=== PATIENT | female | born 1960 | race Caucasian/White ===

== ENCOUNTER 2024-10-09 13:03 | Outpatient (AMB) | payer OTHER, SELFPAY ==
--- OUTSIDE RECORDS SUMMARY | 2024-10-09 13:34 | XMS_ITS | Patient Health Record ---
Author Organization [facility] Address [address] [place] [address] Care Team Providers Care Health Support Specialist Name Role Phone DAVID COLON, VINAY PEPPER Primary Care Provider Neha vailable MARIA L GUIDRY Unavailable [phone] Allergies No Known Allergies Results Component Value Reference Range Notes [id number] IGP No Culture 30 Plus Reviewed date:07/04/2024 02:12:06 PM Interpretation: Performing Lab:[facility] [address], [address], [place], Phone - [phone], Director - [facility] Notes/Report: Clinical Information:vag/cerv robert [id number] No. of containers..01 ThinPrep Vial DIAGNOSIS: NEGATIVE FOR INTRAEPITHELIAL LESION OR MALIGNANCY. CELLULAR CHANGES ASSOCIATED WITH ATROPHY ARE PRESENT. Specimen adequacy: Satisfactory for evaluation. Endocervical component may not be distinguished in cases of atrophy. Clinician provided ICD10: Z0 1.419 Performed by: Elliott hidalgo, Crew Lead (ASCP) . . Note: The Pap smear is a screening test designed to aid in the detection of premalignant and malignant conditions of the uterine cervix. It is not a diagnostic procedure and should not be used as the sole means of detecting cervical cancer. Both false-positive and false-negative reports do occur. . Test Methodology: This liquid based ThinPrep(R) pap test was screened with the use of an image guided system. HPV Aptima Negative Negative This nucleic acid amplification test detects fourteen high-risk HPV types (16,18,31,33,35,39,45,51,52,56,58 ,59,66,68) without differentiation. HPV Genotype Reflex Criteria not met, HPV Genotype not performed. PDF Report Reviewed date:07/04/2024 02:16:17 PM Interpretation: Performing Lab:[facility] [place], [address], [address], [place], Phone - [phone], Director - [facility] Notes/Report: Clinical Information:vag/cerv robert [id number] No. of containers..01 ThinPrep Vial Reason For Referral No Information Medications Medication SIG (Take, Route, Frequency, Duration) Notes Start Date End Date Status Yuvafem 10 MCG 1 tablet Vaginal daily; Duration: 14 days This is the starting dose, to be followed by the twice weekly prescription as maintenance 07/01/2024 Active Yuvafem 10 MCG 1 tablet Vaginal Two times a Week; Duration: 84 days 07/01/2024 Active Social History Tobacco Use: Social History Observation Description Date Details (start date - stop date) Former Smoker NA - NA Sexual History Question Answer Notes Had sex in the past 12 months (vaginal, oral, or anal)? Yes with Men only Have you ever had a Sexually transmitted disease ? No AUDIT-C (Standard) Question Answer Notes Did you have a drink contain ing alcohol in the past year? Yes How often did you have a dri nk containing alcohol in the past year? 2 to 3 times a week (3 points) How many drinks did you have on a typical day when you were drinking in the past year? 3 or 4 drinks (1 point) How often did you have six o r more drinks on one occasion in the past year? Never (0 point) Points 4 Interpretation Positive Tobacco Control (Standard) Question Answer Notes Tobacco use: Former smoker How long has it been since y ou last smoked? Greater than 10 years Additional Findings: Tobacco non-user Ex -very heavy cigarette smoker (40+/day) Problems Problem Type SNOMED Code ICD Code Onset Dates Problem Status W/U Status Risk Notes Problem Postmenopausal atrophic vaginitis (54200089) Postmenopausal atrophic vaginitis (N95.2) Active confirmed Problem COVID-19 (U07.1) Active confirmed Vital Signs Temperature 98.2 degrees Fahrenheit 07/01/2024 Blood pressure diastolic 86 mm Hg 07/01/2024 Height 63 in 07/01/2024 Blood pressure systolic 148 mm Hg 07/01/2024 Weight 110 lbs 07/01/2024 BMI 19.48 kg/m2 07/01/2024 Encounters Encounter Location Date Provider Diagnosis Total [facility] [address] [place] [address] 07/01/2024 MARIA L GUIDRY Encounter for gynecological examination (general) (routine) without abnormal findings Z01.419 ; Encounter for screening mammogram for malignant neoplasm of breast Z12.31 and Postmenopausal atrophic vaginitis N95.2 Assessments Encounter Date Diagnosis (ICD Code) Assessment Notes Treatment Notes Treatment Clinical Notes Section Notes 07/01/2024 Encounter for gynecological examination (general) (routine) without abnormal findings (ICD-10 - Z01.419) During the visit, the following areas of concern were addressed: Discussed cervical cancer screening with either cytology alone every 3 years or high risk HPV co-testing every 5 years as per ASCCP guidelines. Advised continued annual pelvic exams. Patient encouraged to increase her level of exercise. SBE technique encouraged/taught . Patient reminded when annual mammogram is due. Patient encouraged to keep colon screening up to date.Discussed that hormones are not recommended to be used for thinning hair due to risks of breast cancer and cardiac events, and advised she discuss with a color receiver for meds that might help her with that. 07/01/2024 Encounter for screening mammogram for malignant neoplasm of breast (ICD-10 - Z12.31) Given dense breast assessment form 07/01/2024 Postmenopausal atrophic vaginitis (ICD-10 - N95.2) Plan Of Treatment Pending Test Test Name Order Date MM Digital Screening Mammogram 3D 2024 Next Appt Details Provider Name:MARIA L PANTOJA Dayan, 07/03/2025 10:30:00 AM, [address], [address], [place], [address], Insurance Providers Payer Name Payer Address Payer Phone Subscriber Number Group Number Insured Name Patient Relationship to Insured Coverage Start Date Coverage End Date [facility] [address] [place] [address] [id number] HANNA ENGLAND Self - patient is the insured Medical (General) History Medical History History ICD Code COVID-19 U07.1 Surgical History Surgery Date(Month/Year) Myomectomy, 2nd one was laparoscopic 199 08/2004 Hospitalization History Reason Date(Month/Year) myomectomy (first one) childbirth
--- OUTSIDE RECORDS SUMMARY | 2024-10-09 13:34 | XMS_ITS | Clinical Summary ---
Author Organization [facility] Address [address] [place] [address] Phone Care Team Providers Care Obstetrician And Gynaecologist Name Role Phone Angela Quin L SHEATHER Unavailable Pcp, Unknown Primary Care Provider Unavailabl e Medications ascorbic acid, vitamin C, 500 mg Cap Orally Active iodine, kelp, Tab 1 tab(s) p.o. 1/4 TAB DAILY PRN Active cholecalciferol , vitamin D3, 1,000 unit capsule Take 1 capsule by mouth daily. Active MILK THISTLE ORAL Orally Once daily Active multivitamin (MULTIVITAMIN) per tablet Orally Once daily Active Medication-Free Text Hormone Cream Base Cream, Sig: CS-E2 0.5/E3 2/P 150/TE 1.5 Active Family History Medical History Relation Comments Hypertension Maternal Grandfather 2 Diabetes mellitus Maternal Grandmother 2 Stroke Maternal Grandmother 2 Hypertension Mother 2 Relation Status Comments Maternal Grandfather 1 Maternal Grandfather 2 Maternal Grandmother 1 Maternal Grandmother 2 Mother 1 Mother 2 Social History Tobacco Use Types Packs/Day Years Used Date Smoking Tobacco: Never Assessed Education Answer Date Recorded Are you interested in more education? Not on leif e 06/10/2022 Are you concerned about learning? Not on file 06/10/2022 No 06/10/2022 No 06/10/2022 Digital Access Answer Date Recorded No 07/11/2022 No 07/11/2022 Reliable internet access at home? Not on file 07/11/2022 Device with a working camera? Not on file Comments Unknown Sex and Gender Information Value Date Recorded Sex Assigned at Not on file Legal Sex Female 9:46 PM EDT Gender Identity Not on file Sexual Orientation Not on file Last Filed Vital Signs Vital Sign Reading Time Taken Comments Blood Pressure 122/78 10/07/2015 11:42 AM EDT Pulse 70 10/07/2015 11:42 AM EDT Temperature 37.2 C (98.9 F) 10/07/2015 11:42 AM EDT Respiratory Rate - - Oxygen Saturation - - Inhaled Oxygen Concentration - - Weight 52.5 kg (115 lb 12.8 oz) 016 11:42 AM EDT Height 158.8 cm (5' 2.5 ) 10/07/2015 11 :42 AM EDT Body Mass Index 20.84 10/07/2015 11:42 AM EDT Plan of Treatment Health Maintenance Due Date Last Done Comments Adult Td,Tdap Booster 1961 DEPRESSION SCREENING 1973 SMOKING Hx and SMOKELESS TOBACCO SCREENING 1974 HEPATITIS C SCREENING 06/15/1979 HIV ONE-TIME SCREENING (18-65 YEARS) 06/15/1979 COLOGUARD 2006 COLONOSCOPY 2006 COLORECTAL CANCER SCREENING 2006 FIT TEST 2006 FOBT 2006 SIGMOIDOSCOPY 2006 VIRTUAL COLONOSCOPY 2006 PNEUMOCOCCAL VACCINES (50+ years) (1 of 1 - PCV) 06/15/2011 ZOSTER VACCINES (1 of 2) 06/15/2011 PAP SMEAR 12/10/2018 12/11/2015 LIPID PANEL 06/06/2019 06/05/2014 MAMMOGRAM 08/07/2023 08/06/2021, 03/16, 12/31/2018, Additional history exists COVID-19 VACCINE ( - 2023-25 season) 2023 RSV VACCINE (1 - 1-dose 75+ series) 2036 HEPATITIS A VACCINES Aged Out No long er eligible based on patient's age to complete this topic HIB VACCINES Aged Out No longer eligi ble based on patient's age to complete this topic MENINGOCOCCAL VACCINES (ACWY) Aged Out No longer eligible based on patient's age to complete this topic MENINGOCOCCAL VACCINES (B) Aged Out N o longer eligible based on patient's age to complete this topic Medical Devices Not on file Procedures Procedure Name Priority Date/Time Associated Diagnosis Comments HM MAMMOGRAPHY Routine 08/06/2021 OUTSIDE LDL Routine 06/05/2014 from Last 3 Months or Most Recently Relevant to Health Maintenance Results * MAMMOGRAPHY FOR RESULT ENTRY ONLY (08/06/2021) Quin Miller NP HEALTH MAINTENANCE Edited Resul t - Final * Outside LDL (06/05/2014) LDL - External 101 50 - 250 mg/ml Historical Provider LAB BLOOD ORDERABLES Serenity gallegos Result from Last 3 Months or Most Recently Relevant to Health Maintenance Care Teams Obstetrician And Gynaecologist Relationship Specialty Start Date End Date Pcp, Unknown PCP - General 09/08/21 Quin Miller, SHEATHER [email or web address] Historical LMR Provider 12/01/16 Additional Source Comments The information contained in this document represents components of the legal health record. It is not the complete legal health record.[facility]
== END 2024-10-09 13:05 | disposition home or self-care (01) ==
LOC: HO.HMGAL 13:03
PROVIDERS: Visit Provider Registered Nurse Emergency
DX: J30.89 Other allergic rhinitis (principal)
CPT/HCPCS: 95117; 95165

== ENCOUNTER 2024-10-23 15:17 | Outpatient (AMB) | payer OTHER, SELFPAY ==
--- OUTSIDE RECORDS SUMMARY | 2024-10-23 18:17 | XMS_ITS | Clinical Summary ---
Author Organization [facility] Address [address] [place] [address] Phone Care Team Providers Care Market Research Analyst Name Role Phone Angela Quin L QUARTER FOLDER Unavailable [phone] Pcp, Unknown Primary Care Provider Unavailabl e [...] 08/07/2023 08/06/2021, 03/16, 12/31/2018, Additional history exists INFLUENZA VACCINE (#1) 2024 COVID-19 VACCINE ( - 2023- season) 2024 RSV VACCINE (1 - 1-dose 75+ series) [...] Procedure Name Priority Date/Time Associated Diagnosis Comments MAMMOGRAPHY Routine 08/06/2021 OUTSIDE LDL Routine 06/05/2014 from Last 3 Months or Most Recently Relevant to Health Maintenance Results * MAMMOGRAPHY FOR RESULT ENTRY ONLY (08/06/2021) us Quin Miller NP HEALTH MAINTENANCE Edited Resul t - Final * Outside LDL (06/05/2014) LDL - External 101 50 - 250 mg/ml us Historical Provider LAB BLOOD ORDERABLES Serenity l Result from Last 3 Months or Most Recently Relevant to Health Maintenance Care Teams Market Research Analyst Relationship Specialty Start Date End Date Pcp, Unknown PCP - General 09/08/21 Quin Miller, QUARTER FOLDER [email or web address] Historical LMR Provider 12/01/16 Additional Source Comments The information contained in this document represents components of the legal health record. It is not the complete legal health record.[facility]
--- OUTSIDE RECORDS SUMMARY | 2024-10-23 18:17 | XMS_ITS | Patient Health Record ---
Author Organization [facility] Address [address] [place] [address] Care Team Providers Care Proof Sorter Name Role Phone DAVID COLON, VINAY PEPPER Primary Care Provider Neha vailable MARIA L GUIDRY Unavailable [phone] Allergies No Known Allergies Results Component Value Reference Range Notes [id number] IGP No Culture 30 Plus Reviewed date:07/04/2024 02:12:06 PM Interpretation: Performing Lab:[facility] [place], [address], [address], [place], Phone - [phone], Director - [facility] Notes/Report: Clinical Information:vag/cerv robert [id number] No. of containers..01 ThinPrep Vial DIAGNOSIS: NEGATIVE FOR INTRAEPITHELIAL LESION OR MALIGNANCY. CELLULAR CHANGES ASSOCIATED WITH ATROPHY ARE PRESENT. Specimen adequacy: Satisfactory for evaluation. Endocervical component may not be distinguished in cases of atrophy. Clinician provided ICD10: Z0 1.419 Performed by: Elliott hidalgo, Inside Trucker (ASCP) . . Note: The Pap smear [...] [address], [address], [place], Phone - [phone], Director - [facility] Notes/Report: Clinical Information:vag/cerv robert [id number] No. of containers..01 ThinPrep Vial Reason For [...] Status Risk Notes Problem Postmenopausal atrophic vaginitis (22725284) Postmenopausal atrophic vaginitis (N95.2) Active confirmed Problem COVID-19 (529222752) COVID-19 (U07.1) Active confirmed Vital Signs Temperature 98.2 degrees Fahrenheit 07/01/2024 Blood pressure diastolic 86 mm Hg 07/01/2024 Height 63 in 07/01/2024 Blood pressure systolic 148 mm Hg 07/01/2024 Weight 110 lbs 07/01/2024 BMI 19.48 kg/m2 07/01/2024 Encounters Encounter Location Date Provider Diagnosis Total [facility] [address] [place] [address] 07/01/2024 MARIA L GUIDRY Encounter for gynecological [...] events, and advised she discuss with a sock mender for meds that might help her with that. 07/01/2024 Encounter for screening mammogram for malignant neoplasm of breast (ICD-10 - Z12.31) Given dense breast assessment form 07/01/2024 Postmenopausal atrophic vaginitis (ICD-10 - N95.2) Plan Of Treatment Pending Test Test Name Order Date MM Digital Screening Mammogram 3D 2024 Next Appt Details Provider Name:MARIA L PANTOJA Dayan, 07/03/2025 10:30:00 AM, [address], [address], [place], [address], Insurance Providers Payer Name Payer Address Payer Phone Subscriber Number Group Number Insured Name Patient Relationship to Insured Coverage Start Date Coverage End Date [facility] [address] [place] [address] [id number] HANNA ENGLAND Self - patient is the insured Medical (General) History Medical History History ICD Code COVID-19 U07.1 Surgical History Surgery Date(Month/Year) Myomectomy, 2nd one was laparoscopic 199 08/2004 Hospitalization History Reason Date(Month/Year) myomectomy (first one) childbirth
== END 2024-10-23 15:19 | disposition home or self-care (01) ==
LOC: HO.HMGAL 15:17
PROVIDERS: Visit Provider Registered Nurse Emergency
DX: J30.89 Other allergic rhinitis (principal)
CPT/HCPCS: 95117; 95165

== ENCOUNTER 2024-11-06 13:14 | Outpatient (AMB) | payer OTHER, SELFPAY ==
--- OUTSIDE RECORDS SUMMARY | 2024-11-06 15:38 | XMS_ITS | Patient Health Record ---
Author Organization [facility] Address [address] [place] [address] Care Team Providers Care Sluice Tender Name Role Phone DAVID COLON, VINAY PEPPER Primary Care Provider Neha crystal MARIA L GUIDRY Unavailable [phone] Allergies No Known Allergies Results Component Value Reference Range Notes PDF Report Reviewed date:07/04/2024 02:16:17 PM Interpretation: Performing Lab:[facility] [place], [address], [address], [place], Phone - [phone], Director - [facility] Notes/Report: Clinical Information:vag/cerv robert [id number] No. of containers..01 ThinPrep Vial [id number] IGP No Culture 30 Plus Reviewed date:07/04/2024 02:12:06 PM Interpretation: Performing Lab:[facility] [place], [address], [address], [place], Phone - [phone], Director - [facility] Notes/Report: Clinical Information:vag/cerv robert [id number] No. of containers..01 ThinPrep Vial DIAGNOSIS: NEGATIVE FOR INTRAEPITHELIAL LESION OR MALIGNANCY. CELLULAR CHANGES ASSOCIATED WITH ATROPHY ARE PRESENT. Specimen adequacy: Satisfactory for evaluation. Endocervical component may not be distinguished in cases of atrophy. Clinician provided ICD10: Z0 1.419 Performed by: Elliott hidalgo, Recreation Technician (ASCP) . . Note: The Pap smear [...] Criteria not met, HPV Genotype not performed. Reason For Referral No Information Medications Medication [...] Status Risk Notes Problem Postmenopausal atrophic vaginitis (23339681) Postmenopausal atrophic vaginitis (N95.2) Active confirmed Problem COVID-19 (676835159) COVID-19 (U07.1) Active confirmed Vital Signs Temperature 98.2 degrees Fahrenheit 07/01/2024 Blood pressure diastolic 86 mm Hg 07/01/2024 Height 63 in 07/01/2024 Blood pressure systolic 148 mm Hg 07/01/2024 Weight 110 lbs 07/01/2024 BMI 19.48 kg/m2 07/01/2024 Encounters Encounter Location Date Provider Diagnosis Total [facility] [address] [place] [address] 07/01/2024 MARIA L GUIDRY Encounter for gynecological [...] events, and advised she discuss with a excavator backhoe operator for meds that might help her with that. 07/01/2024 Encounter for screening mammogram for malignant neoplasm of breast (ICD-10 - Z12.31) Given dense breast assessment form 07/01/2024 Postmenopausal atrophic vaginitis (ICD-10 - N95.2) Plan Of Treatment Pending Test Test Name Order Date MM Digital Screening Mammogram 3D 2024 Next Appt Details Provider Name:MARIA L PANTOJA Dayan, 07/03/2025 10:30:00 AM, [address], [address], [place], [address], Insurance Providers Payer Name Payer Address Payer Phone Subscriber Number Group Number Insured Name Patient Relationship to Insured Coverage Start Date Coverage End Date [facility] [address] [place] [address] [id number] HANNA ENGLAND Self - patient is the insured Medical (General) History Medical History History ICD Code COVID-19 U07.1 Surgical History Surgery Date(Month/Year) Myomectomy, 2nd one was laparoscopic 199 08/2004 Hospitalization History Reason Date(Month/Year) myomectomy (first one) childbirth
--- OUTSIDE RECORDS SUMMARY | 2024-11-06 15:38 | XMS_ITS | Clinical Summary ---
Author Organization [facility] Address [address] [place] [address] Phone Care Team Providers Care Emergency Response Officer Name Role Phone Angela Quin L HOME APPLIANCE INSTALLER Unavailable Pcp, Unknown Primary Care Provider Unavailabl [...] Recently Relevant to Health Maintenance Care Teams Emergency Response Officer Relationship Specialty Start Date End Date Pcp, Unknown PCP - General 09/08/21 Quin Miller, HOME APPLIANCE INSTALLER [email or web address] Historical LMR Provider 12/01/16 Additional Source Comments The information contained in this document represents components of the legal health record. It is not the complete legal health record.[facility]
== END 2024-11-06 13:17 | disposition home or self-care (01) ==
LOC: HO.HMGAL 13:14
PROVIDERS: PCP Nurse Practitioner Family; Visit Provider Registered Nurse Emergency
DX: J30.89 Other allergic rhinitis (principal)
CPT/HCPCS: 95117; 95165

== ENCOUNTER 2024-11-27 13:42 | Outpatient (AMB) | payer OTHER, SELFPAY ==
--- OUTSIDE RECORDS SUMMARY | 2024-11-27 17:25 | XMS_ITS | Patient Health Record ---
Author Organization [facility] Address [address] [place] [address] Care Team Providers Care Commercial Solar Sales Consultant Name Role Phone DAVID COLON, VINAY PEPPER Primary Care Provider Neha vailable MARIA L GUIDRY Unavailable [phone] Allergies No Known Allergies Results Component Value Reference Range Notes [id number] IGP No Culture 30 Plus Reviewed date:07/04/2024 02:12:06 PM Interpretation: Performing Lab:[facility] [address], [address], [place], Phone - [phone], Director - [facility] Notes/Report: Clinical Information:vag/cerv robert [id number] No. of containers..01 ThinPrep Vial DIAGNOSIS: NEGATIVE FOR INTRAEPITHELIAL LESION OR MALIGNANCY. CELLULAR CHANGES ASSOCIATED WITH ATROPHY ARE PRESENT. Specimen adequacy: Satisfactory for evaluation. Endocervical component may not be distinguished in cases of atrophy. Clinician provided ICD10: Z0 1.419 Performed by: Elliott hidalgo, Electronic Engineering Draftsperson (ASCP) . . Note: The Pap smear [...] [address], [address], [place], Phone - [phone], Director - [facility] Notes/Report: Clinical Information:vag/cerv robert [id number] No. of containers..01 ThinPrep Vial Reason For [...] Status Risk Notes Problem Postmenopausal atrophic vaginitis (99405861) Postmenopausal atrophic vaginitis (N95.2) Active confirmed Problem COVID-19 (138197783) COVID-19 (U07.1) Active confirmed Vital Signs Temperature 98.2 degrees Fahrenheit 07/01/2024 Blood pressure diastolic 86 mm Hg 07/01/2024 Height 63 in 07/01/2024 Blood pressure systolic 148 mm Hg 07/01/2024 Weight 110 lbs 07/01/2024 BMI 19.48 kg/m2 07/01/2024 Encounters Encounter Location Date Provider Diagnosis Total [facility] [address] [place] [address] 07/01/2024 MARIA L GUIDRY Encounter for gynecological [...] events, and advised she discuss with a graphics intern for meds that might help her with that. 07/01/2024 Encounter for screening mammogram for malignant neoplasm of breast (ICD-10 - Z12.31) Given dense breast assessment form 07/01/2024 Postmenopausal atrophic vaginitis (ICD-10 - N95.2) Plan Of Treatment Pending Test Test Name Order Date MM Digital Screening Mammogram 3D 2024 Next Appt Details Provider Name:MARIA L PANTOJA Dayan, 07/03/2025 10:30:00 AM, [address], [address], [place], [address], Insurance Providers Payer Name Payer Address Payer Phone Subscriber Number Group Number Insured Name Patient Relationship to Insured Coverage Start Date Coverage End Date [facility] [address] [place] [address] [id number] HANNA ENGLAND Self - patient is the insured Medical (General) History Medical History History ICD Code COVID-19 U07.1 Surgical History Surgery Date(Month/Year) Myomectomy, 2nd one was laparoscopic 199 08/2004 Hospitalization History Reason Date(Month/Year) myomectomy (first one) childbirth
--- OUTSIDE RECORDS SUMMARY | 2024-11-27 17:25 | XMS_ITS | Clinical Summary ---
Author Organization [facility] Address [address] [place] [address] Phone Care Team Providers Care Senior Bi Architect Name Role Phone Angela Quin L ASSISTANT TERMINAL MANAGER Unavailable [phone] Pcp, Unknown Primary Care Provider Unavailabl e [...] exists INFLUENZA VACCINE (#1) 2024 COVID-19 VACCINE (1 - 2024- season) 2024 RSV VACCINE (1 - 1-dose [...] Recently Relevant to Health Maintenance Care Teams Senior Bi Architect Relationship Specialty Start Date End Date Pcp, Unknown PCP - General 09/08/21 Quin Miller, ASSISTANT TERMINAL MANAGER [email or web address] Historical LMR Provider 12/01/16 Additional Source Comments The information contained in this document represents components of the legal health record. It is not the complete legal health record.[facility]
== END 2024-11-27 13:42 | disposition home or self-care (01) ==
LOC: HO.HMGAL 13:42
PROVIDERS: PCP Nurse Practitioner Family; Visit Provider Registered Nurse Emergency
DX: J30.89 Other allergic rhinitis (principal)
CPT/HCPCS: 95117; 95165

== ENCOUNTER 2024-12-04 16:12 | Outpatient (AMB) | payer OTHER, SELFPAY ==
--- OUTSIDE RECORDS SUMMARY | 2024-12-04 22:02 | XMS_ITS | Clinical Summary ---
Author Organization [facility] Address [address] [place] [address] Phone Care Team Providers Care It Lead Name Role Phone Anegla Quin L UPSETTING MACHINE OPERATOR Unavailable [phone] Pcp, Unknown Primary Care Provider Unavailabl e [...] Recently Relevant to Health Maintenance Care Teams It Lead Relationship Specialty Start Date End Date Pcp, Unknown PCP - General 09/08/21 Quin Miller, UPSETTING MACHINE OPERATOR [email or web address] Historical LMR Provider 12/01/16 Additional Source Comments The information contained in this document represents components of the legal health record. It is not the complete legal health record.[facility]
--- OUTSIDE RECORDS SUMMARY | 2024-12-04 22:03 | XMS_ITS | Patient Health Record ---
Author Organization [employer] [facility] Address [address] [place] [address] Care Team Providers Care Employee Communications Intern Name Role Phone DAVID COLON, VINAY PEPPER Primary Care Provider Neha vailable MARIA L GUIDRY Unavailable [phone] Allergies No Known Allergies Results Component Value Reference Range Notes [id number] IGP No Culture 30 Plus Reviewed date:07/04/2024 02:12:06 PM Interpretation: Performing Lab:[facility] [place], [address], [address], [place], Phone - [phone], Director - [facility] Notes/Report: Clinical Information:vag/cerv robert [id number] No. of containers..01 ThinPrep Vial DIAGNOSIS: NEGATIVE FOR INTRAEPITHELIAL LESION OR MALIGNANCY. CELLULAR CHANGES ASSOCIATED WITH ATROPHY ARE PRESENT. Specimen adequacy: Satisfactory for evaluation. Endocervical component may not be distinguished in cases of atrophy. Clinician provided ICD10: Z0 1.419 Performed by: Elliott hidalgo, Test Evaluator (ASCP) . . Note: The Pap smear [...] [address], [address], [place], Phone - [phone], Director - [facility] Notes/Report: Clinical Information:vag/cerv robert [id number] No. of containers..01 ThinPrep Vial Reason For [...] Status Risk Notes Problem Postmenopausal atrophic vaginitis (42007691) Postmenopausal atrophic vaginitis (N95.2) Active confirmed Problem COVID-19 (375162571) COVID-19 (U07.1) Active confirmed Vital Signs Temperature 98.2 degrees Fahrenheit 07/01/2024 Blood pressure diastolic 86 mm Hg 07/01/2024 Height 63 in 07/01/2024 Blood pressure systolic 148 mm Hg 07/01/2024 Weight 110 lbs 07/01/2024 BMI 19.48 kg/m2 07/01/2024 Encounters Encounter Location Date Provider Diagnosis Total [facility] [address] [place] [address] 07/01/2024 MARIA L GUIDRY Encounter for gynecological [...] events, and advised she discuss with a pay station collector for meds that might help her with that. 07/01/2024 Encounter for screening mammogram for malignant neoplasm of breast (ICD-10 - Z12.31) Given dense breast assessment form 07/01/2024 Postmenopausal atrophic vaginitis (ICD-10 - N95.2) Plan Of Treatment Pending Test Test Name Order Date MM Digital Screening Mammogram 3D 2024 Next Appt Details Provider Name:MARIA L PANTOJA Dayan, 07/03/2025 10:30:00 AM, [address], [address], [place], [address], Insurance Providers Payer Name Payer Address Payer Phone Subscriber Number Group Number Insured Name Patient Relationship to Insured Coverage Start Date Coverage End Date [facility] [address] [place] [address] [id number] HANNA [place] Self - patient is the insured Medical (General) History Medical History History ICD Code COVID-19 U07.1 Surgical History Surgery Date(Month/Year) Myomectomy, 2nd one was laparoscopic 199 08/2004 Hospitalization History Reason Date(Month/Year) myomectomy (first one) childbirth
== END 2024-12-04 16:15 | disposition home or self-care (01) ==
LOC: HO.HMGAL 16:12
PROVIDERS: PCP Nurse Practitioner Family; Visit Provider Registered Nurse Emergency
DX: J30.89 Other allergic rhinitis (principal)
CPT/HCPCS: 95117; 95165

== ENCOUNTER 2024-12-16 14:07 | Outpatient (AMB) | payer OTHER, SELFPAY | END 2024-12-16 14:08 | disposition home or self-care (01) | LOC: HO.HMGAL 14:07 | PROVIDERS: PCP Nurse Practitioner Family; Visit Provider Registered Nurse Emergency | DX: J30.89 Other allergic rhinitis (principal) | CPT/HCPCS: 95117; 95165 ==

== ENCOUNTER 2024-12-23 14:00 | Outpatient (AMB) | payer OTHER, SELFPAY ==
--- OUTSIDE RECORDS SUMMARY | 2024-12-23 16:18 | XMS_ITS | Clinical Summary ---
Author Organization [facility] Address [address] [place] [address] Phone Care Team Providers Care Supervisor Filling And Packing Name Role Phone Angela Quin L BARREL BRIDGE ASSEMBLER Unavailable Pcp, Unknown Primary Care Provider Unavailabl [...] Recently Relevant to Health Maintenance Care Teams Supervisor Filling And Packing Relationship Specialty Start Date End Date Pcp, Unknown PCP - General 09/08/21 Quin Miller, BARREL BRIDGE ASSEMBLER [email or web address] Historical LMR Provider 12/01/16 Additional Source Comments The information contained in this document represents components of the legal health record. It is not the complete legal health record.[facility]
== END 2024-12-23 14:00 | disposition home or self-care (01) ==
LOC: HO.HMGAL 14:00
PROVIDERS: PCP Nurse Practitioner Family; Visit Provider Registered Nurse Emergency
DX: J30.89 Other allergic rhinitis (principal)
CPT/HCPCS: 95117; 95165

== ENCOUNTER 2025-01-01 13:41 | Outpatient (AMB) | payer OTHER, SELFPAY ==
--- OUTSIDE RECORDS SUMMARY | 2025-01-02 01:48 | XMS_ITS | Clinical Summary ---
Author Organization [facility] Address [address] [place] [address] Phone Care Team Providers Care Lost And Found Clerk Name Role Phone Angela Quin L VEHICLE SERVICE AGENT Unavailable [phone] Pcp, Unknown Primary Care Provider Unavailabl [...] Recently Relevant to Health Maintenance Care Teams Lost And Found Clerk Relationship Specialty Start Date End Date Pcp, Unknown PCP - General 09/08/21 Quin Miller, VEHICLE SERVICE AGENT [email or web address] Historical LMR Provider 12/01/16 Additional Source Comments The information contained in this document represents components of the legal health record. It is not the complete legal health record.[facility]
--- OUTSIDE RECORDS SUMMARY | 2025-01-02 01:48 | XMS_ITS | Patient Health Record ---
Author Organization [employer] [facility] Address [address] [place] [address] Care Team Providers Care Appointment Coordinator Name Role Phone DAVID COLON, VINAY PEPPER Primary Care Provider Neha crystal MARIA L GUIDRY Unavailable [phone] Allergies No Known Allergies Results Component Value Reference Range Notes PDF Report Reviewed date:07/04/2024 02:16:17 PM Interpretation: Performing Lab:[facility] [place], [address], [address], [place], Phone - [phone], Director - [facility] Notes/Report: Clinical Information:vag/cerv robert [id number] No. of containers..01 ThinPrep Vial [id number] IGP No Culture 30 Plus Reviewed date:07/04/2024 02:12:06 PM Interpretation: Performing Lab:[facility] [place], [address], [address], [place], Phone - [phone], Director - [facility] Notes/Report: Clinical Information:vag/cerv robert [id number] No. of containers..01 ThinPrep Vial DIAGNOSIS: NEGATIVE FOR INTRAEPITHELIAL LESION OR MALIGNANCY. CELLULAR CHANGES ASSOCIATED WITH ATROPHY ARE PRESENT. Specimen adequacy: Satisfactory for evaluation. Endocervical component may not be distinguished in cases of atrophy. Clinician provided ICD10: Z0 1.419 Performed by: Elliott hidalgo, Buffer Chrome (ASCP) . . Note: The Pap smear [...] Status Risk Notes Problem Postmenopausal atrophic vaginitis (94446999) Postmenopausal atrophic vaginitis (N95.2) Active confirmed Problem COVID-19 (839169110) COVID-19 (U07.1) Active confirmed Vital Signs Temperature 98.2 degrees Fahrenheit 07/01/2024 Blood pressure diastolic 86 mm Hg 07/01/2024 Height 63 in 07/01/2024 Blood pressure systolic 148 mm Hg 07/01/2024 Weight 110 lbs 07/01/2024 BMI 19.48 kg/m2 07/01/2024 Encounters Encounter Location Date Provider Diagnosis Total [facility] [address] [place] [address] 07/01/2024 MARIA L GUIDRY Encounter for gynecological [...] events, and advised she discuss with a portfolio strategist for meds that might help her with that. 07/01/2024 Encounter for screening mammogram for malignant neoplasm of breast (ICD-10 - Z12.31) Given dense breast assessment form 07/01/2024 Postmenopausal atrophic vaginitis (ICD-10 - N95.2) Plan Of Treatment Pending Test Test Name Order Date MM Digital Screening Mammogram 3D 2024 Next Appt Details Provider Name:MARIA L PANTOJA Dayan, 07/03/2025 10:30:00 AM, [address], [address], [place], [address], Insurance Providers Payer Name Payer Address Payer Phone Subscriber Number Group Number Insured Name Patient Relationship to Insured Coverage Start Date Coverage End Date [facility] [address] [place] [address] [phone] [id number] HANNA [place] Self - patient is the insured Medical (General) History Medical History History ICD Code COVID-19 U07.1 Surgical History Surgery Date(Month/Year) Myomectomy, 2nd one was laparoscopic 199 08/2004 Hospitalization History Reason Date(Month/Year) myomectomy (first one) childbirth
== END 2025-01-01 13:42 | disposition home or self-care (01) ==
LOC: HO.HMGAL 13:41
PROVIDERS: PCP Nurse Practitioner Family; Visit Provider Registered Nurse Emergency
DX: J30.89 Other allergic rhinitis (principal)
CPT/HCPCS: 95117; 95165

== ENCOUNTER 2025-01-22 12:51 | Outpatient (AMB) | payer OTHER, SELFPAY | END 2025-01-22 12:53 | disposition home or self-care (01) | LOC: HO.HMGAL 12:51 | PROVIDERS: PCP Nurse Practitioner Family; Visit Provider Registered Nurse Emergency | DX: J30.89 Other allergic rhinitis (principal) | CPT/HCPCS: 95117; 95165 ==

== ENCOUNTER 2025-02-03 13:47 | Outpatient (AMB) | payer OTHER, SELFPAY ==
--- OUTSIDE RECORDS SUMMARY | 2025-02-03 17:14 | XMS_ITS | Patient Health Record ---
Author Organization [facility] Address [address] [place] [address] Care Team Providers Care Sharepoint Architect Name Role Phone DAVID COLON, VINAY PEPPER Primary Care Provider Neha vailable MARIA L GUIDRY Unavailable [phone] Allergies No Known Allergies Results Component Value Reference Range Notes [id number] IGP No Culture 30 Plus Reviewed date:07/04/2024 02:12:06 PM Interpretation: Performing Lab:[facility] [address], [address], [place], Phone - [phone], Director - [facility] Notes/Report: Clinical Information:vag/cerv robert [id number] No. of containers..01 ThinPrep Vial DIAGNOSIS: NEGATIVE FOR INTRAEPITHELIAL LESION OR MALIGNANCY. CELLULAR CHANGES ASSOCIATED WITH ATROPHY ARE PRESENT. Specimen adequacy: Satisfactory for evaluation. Endocervical component may not be distinguished in cases of atrophy. Clinician provided ICD10: Z0 1.419 Performed by: Elliott hidalgo, Manager Marketing Sales (ASCP) . . Note: The Pap smear [...] [address], [address], [place], Phone - [phone], Director - [facility] Notes/Report: Clinical Information:vag/cerv robert [id number] No. of containers..01 ThinPrep Vial Reason For [...] Status Risk Notes Problem Postmenopausal atrophic vaginitis (71594747) Postmenopausal atrophic vaginitis (N95.2) Active confirmed Problem COVID-19 (718577186) COVID-19 (U07.1) Active confirmed Vital Signs Temperature 98.2 degrees Fahrenheit 07/01/2024 Blood pressure diastolic 86 mm Hg 07/01/2024 Height 63 in 07/01/2024 Blood pressure systolic 148 mm Hg 07/01/2024 Weight 110 lbs 07/01/2024 BMI 19.48 kg/m2 07/01/2024 Encounters Encounter Location Date Provider Diagnosis Total [facility] [address] [place] [address] 07/01/2024 MARIA L GUIDRY Encounter for gynecological [...] events, and advised she discuss with a sleeve setter safety stitch for meds that might help her with that. 07/01/2024 Encounter for screening mammogram for malignant neoplasm of breast (ICD-10 - Z12.31) Given dense breast assessment form 07/01/2024 Postmenopausal atrophic vaginitis (ICD-10 - N95.2) Plan Of Treatment Pending Test Test Name Order Date MM Digital Screening Mammogram 3D 2024 Next Appt Details Provider Name:MARIA L PANTOJA Dayan, 07/03/2025 10:30:00 AM, [address], [address], [place], [address], Insurance Providers Payer Name Payer Address Payer Phone Subscriber Number Group Number Insured Name Patient Relationship to Insured Coverage Start Date Coverage End Date [facility] [address] [place] [address] [id number] HANNA [place] Self - patient is the insured Medical (General) History Medical History History ICD Code COVID-19 U07.1 Surgical History Surgery Date(Month/Year) Myomectomy, 2nd one was laparoscopic 199 08/2004 Hospitalization History Reason Date(Month/Year) myomectomy (first one) childbirth
--- OUTSIDE RECORDS SUMMARY | 2025-02-03 17:14 | XMS_ITS | Clinical Summary ---
Author Organization [facility] Address [address] [place] [address] Phone Care Team Providers Care Formulator Name Role Phone Angela Quin L CALENDER OPERATOR Unavailable [phone] Pcp, Unknown Primary Care Provider Unavailabl e [...] Recently Relevant to Health Maintenance Care Teams Formulator Relationship Specialty Start Date End Date Pcp, Unknown PCP - General 09/08/21 Quin Miller, CALENDER OPERATOR [email or web address] Historical LMR Provider 12/01/16 Additional Source Comments The information contained in this document represents components of the legal health record. It is not the complete legal health record.[facility]
== END 2025-02-03 13:48 | disposition home or self-care (01) ==
LOC: HO.HMGAL 13:47
PROVIDERS: PCP Nurse Practitioner Family; Visit Provider Registered Nurse Emergency
DX: J30.89 Other allergic rhinitis (principal)
CPT/HCPCS: 95117; 95165